=== PATIENT | female | born 2000 | race Caucasian/White ===

== ENCOUNTER → 2020-10-19 | Outpatient (CLI) | payer OTHER | LOC: COL.RAD 06:58 | DX: Z87.440 Personal history of urinary (tract) infections (principal); Z96.0 Presence of urogenital implants; Z96.89 Presence of other specified functional implants ==

== ENCOUNTER 2024-03-27 14:57 | Emergency (ER) | payer SELFPAY ==
[~2024-03-27] VITALS: Ht 162.6 cm; Wt 65.9 kg
[~2024-03-27 14:57] MED LIST: CIPRO 500MG TA500 MG PO; NORCO 325 MG-51 TAB PO; ZOFRAN ODT4 MG PO
[2024-03-27 15:03] VITALS: BP 110/72; TEMP 97.9
[2024-03-27 19:40] VITALS: PULSE 69
== END 2024-03-27 19:40 | disposition home or self-care (01) ==
LOC: COL.ER 14:57
DX: S06.0X0A Concussion without loss of consciousness, initial encounter (principal); S13.4XXA Sprain of ligaments of cervical spine, initial encounter; V48.5XXA Car driver injured in noncollision transport accident in traffic accident, initial encounter; Y92.410 Unspecified street and highway as the place of occurrence of the external cause